=== PATIENT | male | born 1975 | race Caucasian/White ===

== ENCOUNTER → 2020-11-05 | Outpatient (CLI) | payer OTHER ==
--- NOTE | 2020-11-05 13:48 | KCIC ---
Examination: MRI of the left forearm without contrast HISTORY: History of injury to the forearm, bump in the anteromedial left wrist COMPARISON: None available TECHNIQUE: Multiplanar, multisequence MR imaging of the left forearm without contrast FINDINGS: There is minimal increased T2 signal/fluid identified along the distal aspect of the biceps tendon at its attachment of the radius likely small bursal fluid in the bicipitoradial bursa. The muscle bulk grossly appears unremarkable. The alignment of the radius, ulna grossly appears unremarkable. There i s a 2 cm cystic structure identified in the soft tissue flexor to the distal aspect of the ulna media l to the flexor tendons, best visualized on series 10 image 6, partially visualized. Small elbow join t effusion partially visualized. IMPRESSION: 1. A 2 cm cystic structure identified in the soft tissue flexor to the distal aspect of the ulna med ial to the flexor tendons, best visualized on series 10 image 6, likely a ganglion cyst. Recommend MR I wrist for further evaluation. 2. Minimal increased T2 signal/fluid identified along the distal aspect of the biceps tendon at its attachment of the radius likely small bursal fluid in the bicipitoradial bursa. Electronically signed by: Omar Aguilar MD (11/05/2020 1:45 PM) [id number]
== END ==
LOC: KCIC MRI 12:23
PROVIDERS: ATTEND Physician Assistant
DX: S56.902A Unspecified injury of unspecified muscles, fascia and tendons at forearm level, left arm, initial encounter (principal); M25.422 Effusion, left elbow; X58.XXXA Exposure to other specified factors, initial encounter; Y93.89 Activity, other specified; Y92.89 Other specified places as the place of occurrence of the external cause; Y99.8 Other external cause status
CPT/HCPCS: 73218